=== PATIENT | male | born 1985 | race Two or more races ===

== ENCOUNTER 2025-07-28 09:38 | Outpatient (CLI) | payer MEDICAID ==
--- NOTE | 2025-07-28 13:20 | RADIOLOGY REPORT ---
PROCEDURE: MR MRI HEAD, CT CT CERVICAL SPINE, MR MRI C SPINE Indication: HEADACHE;OTHER SYMPTOMS AND SIGNS INVOLVING THE NERVOUS COMPARISON: None TECHNIQUE: Multiplanar multisequence images of the brain , cervical spine are obtained. CT axial images of the cervical spine are obtained. Coronal and sagittal reformats were obtained. FINDINGS: MRI brain: There is no abnormal diffusion restriction. There is no intracranial hemorrhage. No extra-axial fluid collection, mass effect or midline shift. The ventricles are midline and normal in size. The cisterns are patent. Normal intracranial flow voids are preserved. No abnormal susceptibility signal. No CP angle/ IAC mass seen within the limitations of noncontrast MRI. Small bilateral mastoid effusions. The visualized orbits are unremarkable. CT cervical spine: The cervical vertebral body heights are maintained. Yokh-jf-objchvim multilevel disc space narrowing with anterior osteophytosis. No prevertebral edema. Atlantooccipital, atlantoaxial articulations intact. Facet articulations intact. MRI cervical spine: The cervical heights are maintained. Euhr-il-svrcvkwl multilevel disc space narrowing and desiccation. No prevertebral edema. Atlantooccipital, atlantoaxial articulations intact. C2-3: Small disc osteophyte complex. No spinal canal stenosis. Mild bilateral neural foraminal stenosis. C3-4: Small disc osteophyte complex. Narrowing of the ventral and dorsal CSF spaces. Thecal sac measures 9 mm AP. Mild spinal canal stenosis. Moderate left and mild right neural foraminal stenosis secondary to facet and uncovertebral hypertrophy. C4-5: Small disc osteophyte complex. No spinal canal stenosis. Moderate right and lgxt-fr-veaowpsw left neural foraminal stenosis. C5-6: No spinal canal stenosis. Moderate right and yhnx-uk-ffaqalyo left neural foraminal stenosis secondary to facet and uncovertebral hypertrophy. C6-7: Small disc osteophyte complex. No spinal canal stenosis. Severe right and moderate left neural foraminal stenosis. C7-T1: Small disc osteophyte complex. No spinal canal stenosis. Moderate to severe right and mild left neural foraminal stenosis IMPRESSION: MRI brain: No acute cerebrovascular ischemia. Small bilateral mastoid effusions. CT cervical spine: [id number]-ct-[id number] cervical degenerative disc disease. MRI cervical spine: Jfng-ye-krpijgau cervical degenerative disc disease. Mild spinal canal stenosis C3-4. Multilevel moderate to severe neural foraminal stenosis described above.
== END 2025-07-28 23:59 | disposition home or self-care (01) ==
LOC: RAD 09:38
PROVIDERS: ATTEND Nurse Practitioner Family
DX: H70.93 Unspecified mastoiditis, bilateral (principal); R42 Dizziness and giddiness; R29.818 Other symptoms and signs involving the nervous system; R51.9 Headache, unspecified; M48.03 Spinal stenosis, cervicothoracic region; M47.812 Spondylosis without myelopathy or radiculopathy, cervical region; M50.30 Other cervical disc degeneration, unspecified cervical region
CPT/HCPCS: 70551; 72125; 72141

== ENCOUNTER 2025-08-17 13:19 | Outpatient (CLI) | payer MEDICAID ==
--- NOTE | 2025-08-17 15:25 | RADIOLOGY REPORT ---
CLINICAL INFORMATION: INURY OF TENDON OF BICEPS. COMPARISON: None TECHNIQUE: Multisequence multiplanar MRI images of the right elbow were obtained without contrast. FINDINGS: BONES/JOINT: No acute fracture or focal marrow contusion. No significant arthropathy. No significant joint effusion. TENDONS: Common extensor tendon origin is intact and otherwise unremarkable. Origin of the common flexor tendon is intact and otherwise unremarkable. There is moderate tendinosis of the distal biceps tendon near its insertion. There is a small amount of adjacent soft tissue edema and fluid, may be due to strain injury. Minimal edema near the biceps myotendinous junction, also possibly due to strain. Mild edema and trace fluid along the dorsal aspect of the distal triceps tendon and extending into the olecranon bursa. Distal brachialis tendon is intact. LIGAMENTS: Ulnar collateral ligament is intact. Radial collateral ligament, lateral ulnar collateral ligament, and annular ligament are intact. CUBITAL TUNNEL: Unremarkable. Normal signal intensity and caliber of the ulnar nerve within the cubital tunnel. MUSCLES: Normal muscle bulk. No significant atrophy. There is minimal edema at the distal biceps myotendinous junction, consistent with mild strain in the appropriate clinical setting. The rest of the visualized musculature appears intact and otherwise unremarkable. OTHER: No other significant findings. IMPRESSION: 1. Moderate tendinosis of the distal biceps tendon with mild edema and adjacent fluid, suspected strain injury near its insertion. Correlate with clinical findings. 2. Minimal edema also noted near the distal biceps myotendinous junction, also likely due to strain. 3. Mild edema in trace fluid along the dorsal aspect of the distal triceps tendon and extending into the adjacent olecranon bursa, may be inflammatory in nature and/or due to strain.
--- NOTE | 2025-08-17 15:26 | RADIOLOGY REPORT ---
CLINICAL HISTORY: INJURY OF TENDON OF BICEPS. TECHNIQUE: Multi sequence multi planar MRI images of the right humerus were obtained without IV contrast. COMPARISON: No prior imaging of the right humerus was available for comparison at the time of dictation. FINDINGS: The visualized portions of the biceps tendon appear intact. The origin of the long head biceps tendon is not well-visualized within the ejaza-hb-zvem of the exam due to artifact near this location. The biceps tendon insertion is not included within the oypex-tq-uyxz of the exam. Biceps mus culature appears unremarkable. No evidence of biceps strain or tear. No significant atrophy. Triceps musculature is also within normal limits. Subcutaneous tissues are unremarkable. There is no acute fracture or focal marrow contusion in the right humerus. No suspicious intraosseous lesion. IMPRESSION: 1. Visualized portions of the biceps tendon are intact. 2. No evidence of muscle strain or tear. No significant atrophy. 3. No acute or suspicious osseous abnormality identified.
== END 2025-08-17 23:59 | disposition home or self-care (01) ==
LOC: MRI02 13:19
PROVIDERS: ATTEND Nurse Practitioner Family
DX: S46.209A Unspecified injury of muscle, fascia and tendon of other parts of biceps, unspecified arm, initial encounter (principal); M75.81 Other shoulder lesions, right shoulder; R60.0 Localized edema; X58.XXXA Exposure to other specified factors, initial encounter; Y93.89 Activity, other specified; Y92.89 Other specified places as the place of occurrence of the external cause; Y99.8 Other external cause status
CPT/HCPCS: 73218; 73221